=== PATIENT | female | born 1950 ===

== ENCOUNTER → 2017-03-19 | Outpatient (CLI) | payer OTHER | LOC: ULTRA 07:53 | DX: K76.89 Other specified diseases of liver (principal); R16.1 Splenomegaly, not elsewhere classified ==

== ENCOUNTER → 2017-08-09 | Outpatient (CLI) | payer OTHER | LOC: RAD 00:35 | DX: Z12.31 Encounter for screening mammogram for malignant neoplasm of breast (principal) ==

== ENCOUNTER → 2018-08-19 | Outpatient (CLI) | payer OTHER | LOC: RAD 01:13 | DX: Z12.31 Encounter for screening mammogram for malignant neoplasm of breast (principal) ==

== ENCOUNTER → 2018-09-19 | Outpatient (CLI) | payer OTHER | LOC: CAT 10:27 | DX: I26.99 Other pulmonary embolism without acute cor pulmonale (principal) ==

== ENCOUNTER → 2018-12-15 | Outpatient (CLI) | payer OTHER | LOC: ULTRA 09:04 | DX: M79.89 Other specified soft tissue disorders (principal); M79.621 Pain in right upper arm; Z88.2 Allergy status to sulfonamides ==

== ENCOUNTER → 2019-05-27 | Outpatient (CLI) | payer OTHER | LOC: ULTRA 07:04 | DX: R10.11 Right upper quadrant pain (principal) ==

== ENCOUNTER → 2019-08-21 | Outpatient (CLI) | payer OTHER | LOC: RAD 11:14 | DX: Z12.31 Encounter for screening mammogram for malignant neoplasm of breast (principal) ==

== ENCOUNTER → 2020-04-04 | Outpatient (CLI) | payer OTHER | LOC: LAB 08:23 | PROVIDERS: ATTEND Family Medicine | DX: U07.1 COVID-19 (principal) ==

== ENCOUNTER → 2020-08-29 | Outpatient (CLI) | payer OTHER | LOC: BC 07:38 | PROVIDERS: ATTEND Family Medicine | DX: Z12.31 Encounter for screening mammogram for malignant neoplasm of breast (principal) ==

== ENCOUNTER → 2020-11-30 | Outpatient (CLI) | payer OTHER | LOC: NUC 10:01 → RAD 13:17 → NUC 13:17 | PROVIDERS: ATTEND Family Medicine | DX: M47.816 Spondylosis without myelopathy or radiculopathy, lumbar region (principal); M85.88 Other specified disorders of bone density and structure, other site; M81.0 Age-related osteoporosis without current pathological fracture ==

== ENCOUNTER → 2021-09-06 | Outpatient (CLI) | payer OTHER | LOC: BC 13:01 | PROVIDERS: ATTEND Family Medicine | DX: Z12.31 Encounter for screening mammogram for malignant neoplasm of breast (principal); N64.89 Other specified disorders of breast ==